=== PATIENT | female | born 1995 ===

== ENCOUNTER 2018-07-22 07:16 | Emergency (ER) | payer SELFPAY ==
[2018-07-22 07:26] VITALS: BP 108/71
--- NOTE | 2018-07-22 07:41 | UC ---
Abdominal Pain Female HPI - HPI Summary HPI Summary: 23-year-old woman comes in with a chief complaint of abdominal pain. Pain started last evening. It's mostly periumbilical. It's cramping. Patient feels nauseous but she's not been able to vomit. She had diarrhea this morning that did have some blood in it. She reports that she has a history of hemorrhoids and she quite often has some blood in her stool. No prior abdominal surgeries. Last menstrual period was the urine half ago she is on control; Implanon. Patient reports the pains getting worse rather than better. She reports the worst pain she is ever had and life. She's reporting about a 7 out of 10 pain. Any kind of movement makes the pain worse. The pain remains when she is laying still but it makes it less. - History of Current Complaint Chief Complaint: UCAbdominalPain Stated Complaint: STOMACH PAIN,NAUSEA Time Seen by Provider: 07/22/18 07:34 Hx Last Menstrual Period: unknown Pain Intensity: 7 Allergies/Adverse Reactions: Allergies Allergy/AdvReac Type Severity Reaction Status Date / Time No Known Allergies Allergy Verified 07/22/18 07:21 Home Medications: Home Medications Implanon 1 applic ONCE 07/22/18 [History] PMH/Surg Hx/FS Hx/Imm Hx Previously Healthy: Yes - Surgical History Surgical History: None - Family History Known Family History: Positive: Non-Contributory - Social History Alcohol Use: None Substance Use Type: None Smoking Status (MU): Never Smoked Tobacco Review of Systems All Other Systems Reviewed And Are Negative: Yes Constitutional: Positive: Chills Skin: Positive: Negative Eyes: Positive: Negative ENT: Positive: Negative Respiratory: Positive: Negative Cardiovascular: Positive: Negative Gastrointestinal: Positive: Abdominal Pain, Diarrhea, Nausea Genitourinary: Positive: Negative Motor: Positive: Negative Neurovascular: Positive: Negative Musculoskeletal: Positive: Negative Neurological: Positive: Negative Psychological: Positive: Negative Is Patient Immunocompromised?: No Physical Exam Triage Information Reviewed: Yes Appearance: Well-Nourished, Ill-Appearing - mild, Pain Distress - mild Vital Signs: Initial Vital Signs Temp 98.1 F 07/22/18 07:22 Pulse 70 07/22/18 07:22 Resp 20 07/22/18 07:22 BP 108/71 07/22/18 07:22 Pulse Ox 100 07/22/18 07:22 Vital Signs Reviewed: Yes Eye Exam: Normal Eyes: Positive: Conjunctiva Clear Neck: Positive: Supple Respiratory: Positive: Lungs clear, Normal breath sounds, No respiratory distress Cardiovascular: Positive: RRR Abdomen Description: Positive: Other: - tender to palpation periumbilical. Negative: CVA Tenderness (R), CVA Tenderness (L) Bowel Sounds: Positive: Present Musculoskeletal: Positive: Strength Intact, ROM Intact Neurological: Positive: Muscle Tone Normal Psychological: Positive: Age Appropriate Behavior Skin Exam: Normal Abd Pain Female Course/Dx - Course Course Of Treatment: Due to the severity of the abdominal pain, I recommended the patient go to the Emergency Department. She declined ambulance transport. Is having a friend drive her. - Differential Dx/Diagnosis Provider Diagnosis: Abdominal pain Discharge - Sign-Out/Discharge Documenting (check all that apply): Patient Departure All imaging exams completed and their final reports reviewed: No Studies - Discharge Plan Condition: Stable Disposition: HOME-RECOMMEND TO ED Additional Instructions: GO DIRECTLY TO THE EMERGENCY DEPARTMENT FOR FURTHER EVALUATION. - Billing Disposition and Condition Condition: STABLE Disposition: Home-Recommend to ED
== END 2018-07-22 07:49 | disposition home health service (06) ==
LOC: UCCORT 07:16
DX: R10.33 Periumbilical pain (principal)
CPT/HCPCS: 81003; 84702; 99202; G0463